=== PATIENT | female | born 2000 | race Caucasian/White ===

== ENCOUNTER 2023-04-05 15:28 | Emergency (ER) | payer OTHER, SELFPAY ==
[2023-04-05 15:29] VITALS: BP 127/88; PULSE 77; RESP 16; TEMP 36.8; O2SAT 96; BMI 30.2
--- NOTE | 2023-04-05 16:04 | ED_ITS ---
Discharge Plan Disposition Patient Disposition: Home, Self-Care Prescriptions Prescriptions: New ciprofloxacin HCl 0.3 % drops 2 drp ophthalmic (eye) Q4H 5 Days Qty: 5 0RF Rx Instructions: administer while awake Referrals Follow up/Referrals: Provider,Referral, [Primary Care Provider] - See instructions Activity Restrictions/Add. Instructions Additional Instructions/Restrictions: You have conjunctivitis of your left eye this is most likely viral because you are here with your son who also has an upper respiratory viral infection. However given the fact that this was associated with contact lens we will prescribe antibiotics to treat pseudomonal infection. Please do not put your contact lens back in until this is completely healed also may follow-up with an marine superintendent if this is not getting better within a few days. Clinical Impressions Clinical Impression: Contact lens related conjunctivitis Discharge ED Provider: Garth Ovalles General Adult HPI General Chief complaint: Eye Problems Stated complaint: left eye swelling redness pain Time Seen by Provider: 04/05/23 15:46 Mode of Arrival: Ambulatory Source of Information: Patient Limitations: No Limitations Description of Symptoms (Recalled from ER Triage Doc. by RN): pt presents to ED with c/o left eye redness, drainage. pt reports symptoms began 2 days ago. History of Present Illness HPI narrative: Patient is a 22-year-old female presents emergency department with a left hide it is red. She also is accompanied by her son who has a viral upper respiratory infection that is can been concomitant with her symptoms. However she states that she had some contact lenses that she left into long and that this was begun. She denies any foreign body sensation or any significant pain associated with this or any thick discharge no fevers chills or any other symptoms. Related Data Previous Rx's Medication Instructions Recorded ciprofloxacin HCl 0.3 % eye drops 2 drp ophthalmic (eye) Q4H 5 days 04/05/23 #5 mL Allergies Allergy/AdvReac Type Severity Reaction Status Date / Time No Known Allergies Allergy Verified 04/05/23 16:02 [facility] Disclaimer: The information contained in this section may have been updated after the patient was seen, as this information can be updated by other users. Social History Smoking Status: Current every day smoker alcohol intake: never current occupational status: other Travel in the last 8 weeks: None ROS Obtained: Yes All systems reviewed & no additional complaints except as documented Physical Exam General General appearance: alert Eye Eye exam: Present PERRL, conjunctival redness, conjunctival injection (Left eye) and other (No hyphema iritis etc.) Respiratory Respiratory exam: Present normal lung sounds bilaterally Cardiovascular Cardiovascular exam: Present regular rate Neurological Exam Neurological exam: Present alert Medical Decision Making Misael Inquiry Pt receiving controlled substance: No Vital Signs: 04/05/23 15:29 Temperature 98.3 F Temperature Source Oral Pulse Rate [Left Radial] 77 Respiratory Rate 16 Blood Pressure [Right Arm] 127/88 Blood Pressure Mean [Right Arm] 101 02 Sat by Pulse Oximetry 96 Oxygen Delivery Method Room Air Medical Decision Narrative: Patient with conjunctivitis of the left eye most likely viral given the fact that she is here with her son who has URI symptoms however with contact lens association we will treat for a possible pseudomonal infection. He has been advised to not put her contact lenses back in until she is back to normal. She was also advised to use cool compresses. She was discharged in stable condition with return precautions. Critical Care Critical Care Time Critical Care Time: No
[2023-04-05 16:11] VITALS: BP 162/94; PULSE 77; RESP 16; TEMP 36.7; O2SAT 98
== END 2023-04-05 16:11 | disposition home or self-care (01) ==
PROVIDERS: Emergency Provider Student in an Organized Health Care Education/Training Program
DX: H18.822 Corneal disorder due to contact lens, left eye (principal); H10.9 Unspecified conjunctivitis; F17.200 Nicotine dependence, unspecified, uncomplicated
CPT/HCPCS: 99283

== ENCOUNTER 2023-04-17 21:58 | Emergency (ER) | payer OTHER, SELFPAY ==
--- NOTE | 2023-04-17 21:51 | ECG_ITS ---
APPROVED REPORT Exam: Resting ECG HR:63 bpm ECG Measurements Heart Rate 63 AXES VT 146 P -32 QRSd 98 QRS 89 QT 366 T 27 QTc 374 Conclusion SINUS RHYTHM WITH SINUS ARRHYTHMIA NORMAL ECG UNCONFIRMED REPORT Electronically signed by : Herbie Titus MD 04/18/2023 14:31:42
--- NOTE | 2023-04-17 21:54 | PC.NURSE ---
CALL TO POISON CONTROL, SPOKE WITH FIDE. STATED TO OBTAIN THE USUAL THINGS AND MONITOR FOR GI UPSET AND DROWSINESS. PEAK TIME 6 HOURS. OTHER SYMPTOMS INCLUDE EXTRPYRAMIDAL SX'S, POSSIBLE TACHYCARDIA, HYPOTENSION.
--- NOTE | 2023-04-17 21:54 | HMH.EDGENADL ---
Discharge Plan Disposition Patient Disposition: [facility]fer [facility] Prescriptions Prescriptions: No Action ciprofloxacin HCl 0.3 % drops 2 drp ophthalmic (eye) Q4H 5 Days Qty: 5 0RF Rx Instructions: administer while awake Clinical Impressions Clinical Impression: Asymptomatic bacteriuria Suicide attempt by drug ingestion Qualifiers: Encounter type: initial encounter Qualified Code(s): T50.902A - Poisoning by unspecified drugs, medicaments and biological substances, intentional self-harm, initial encounter Discharge ED Provider: Jaycob Alves General Adult HPI <Isidoro Starr MD - Last Filed: 04/17/23 22:44> General Chief complaint: Overdose Stated complaint: si, took handful of vraylar Time Seen by Provider: 04/17/23 21:55 History of Present Illness HPI narrative: Patient is a 22-year-old female with 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 Patient took approximately 1 handful of Vraylar at 9 PM due to not wanting her boyfriend break-up with her in an attempt to intentionally harm herself. Patient denies coingestants. No other acute complaints at this time. Related Data Previous Rx's Medication Instructions Recorded ciprofloxacin HCl 0.3 % eye drops 2 drp ophthalmic (eye) Q4H 5 days 04/05/23 #5 mL Allergies Allergy/AdvReac Type Severity Reaction Status Date / Time No Known Allergies Allergy Verified 04/05/23 16:02 PFSH <Isidoro Starr MD - Last Filed: 04/17/23 22:44> PFS Disclaimer: The information contained in this section may have been updated after the patient was seen, as this information can be updated by other users. Social History (Updated 04/05/23 @ 16:06 by Garth Ovalles MD) Smoking Status: Current every day smoker alcohol intake: never current occupational status: other Travel in the last 8 weeks: None <Isidoro Starr MD - Last Filed: 04/17/23 22:44> ROS Obtained: Yes Systems reviewed as appropriate & no additional complaints except as documented Physical Exam <Isidoro Starr MD - Last Filed: 04/17/23 22:44> General General appearance: alert and in no apparent distress Head Head exam: atraumatic and normocephalic Eye Eye exam: Present PERRL and EOMI ENT ENT exam: Present mucous membranes moist Neck Neck exam: Present normal inspection Chest Chest inspection: Present normal inspection and symmetric chest wall rise Respiratory Respiratory exam: Present normal lung sounds bilaterally; Absent respiratory distress Cardiovascular Cardiovascular exam: Present regular rate and normal rhythm Abdominal Exam Abdominal exam: Present soft Extremities Exam Extremities exam: Present normal inspection Neurological Exam Neurological exam: Present alert Psychiatric Psychiatric exam: Present normal affect Skin Skin exam: Present warm and dry Medical Decision Making <Isidoro Starr MD - Last Filed: 04/17/23 22:44> Misael [place] Pt receiving controlled substance: No Vital Signs: 04/17/23 21:58 04/17/23 22:06 04/17/23 21:57 Temperature 98.3 F 98.3 F Temperature Source Oral Oral Pulse Rate 77 69 Pulse Rate [Left] 72 Respiratory Rate 16 18 Blood Pressure 126/87 Blood Pressure [Right Arm] 142/91 H Blood Pressure Mean [Right Arm] 108 Blood Pressure Source Automatic Cuff Blood Pressure Source [Right Arm] Automatic Cuff Blood Pressure Position Sitting Blood Pressure Position [Right Arm] Sitting 02 Sat by Pulse Oximetry 97 98 98 Oxygen Delivery Method Room Air Room Air 04/18/23 00:41 04/18/23 05:17 Temperature 98.3 F 98.3 F Temperature Source Oral Oral Pulse Rate 67 69 Pulse Rate [Left] Respiratory Rate 16 16 Blood Pressure 134/77 132/74 Blood Pressure [Right Arm] Blood Pressure Mean [Right Arm] Blood Pressure Source Automatic Cuff Blood Pressure Source [Right Arm] Blood Pressure Position Sitting Supine Blood Pressure Position [Right Arm] 02 Sat by Pulse Oximetry 98 Oxygen Delivery Method Room Air Room Air Lab Data Lab Results 04/17/23 23:10: WBC 8.9, RBC 4.90, Hgb 13.5, Hct 41.2, MCV 84.1, MCH 27.6, MCHC 32.8, RDW 12.8, Plt Count 336, MPV 7.2 L, Neut % (Auto) 71.8, Lymph % (Auto) 23.8, [place] % (Auto) 3.3, Eos % (Auto) 0.9, Baso % (Auto) 0.2, Neut # (Auto) 6.4, Lymph # (Auto) 2.1, [place] # (Auto) 0.3, Eos # (Auto) 0.1, Baso # (Auto) 0.0, Sodium 139, Potassium 3.9, Chloride 107, Carbon Dioxide 23, Anion Gap 12.9, BUN 10, Creatinine 0.70, Estimated Creat Clear 146, Estimated GFR 106, Est GFR ( Amer) 128, Glucose 97, Calcium 9.1, Total Bilirubin 0.3, AST 23, ALT 17, Alkaline Phosphatase 62, Total Protein 7.0, Albumin 4.3, Globulin 2.7, Albumin/Globulin Ratio 1.6, Serum HCG, Qual Negative, Salicylates < 1.0 L, Acetaminophen < 10 L, Plasma/Serum Alcohol < 10 04/17/23 23:55: Urine Color Yellow, Urine Appearance Cloudy, Urine pH 6.0, Ur Specific [place] >= 1.030, Urine Protein Negative, Urine Glucose (UA) Negative, Urine Ketones Trace, Urine Blood Negative, Urine Nitrate Positive, Urine Bilirubin 1+ A, Urine Urobilinogen 2.0, Ur Leukocyte Esterase Trace, Urine RBC None, Urine WBC 10-20, Ur Squamous Epith Cells Occasional, Amorphous Sediment Trace, Urine Bacteria 3+, Urine Mucus Trace, Urine HCG, Qual Negative, Urine Opiates Screen Negative, Urine Methadone Screen Negative, Ur Barbituates Screen Negative, Ur Phencyclidine Scrn Negative, Ur Amphetamines Screen Negative, U Benzodiazepines Scrn Negative, Urine Cocaine Screen Positive H, U Marijuana (THC) Screen Positive H 04/17/23 23:10 04/17/23 23:10 Orders (Tests/Meds): ORDERS Category Date Time Status Acetaminophen Stat Lab 04/17/23 23:10 Completed Blood alcohol [Ethyl Alcohol] Stat Lab 04/17/23 23:10 Completed CBC w/Auto Diff [Complete Blood Count Auto Diff] Stat Lab 04/17/23 23:10 Completed CMP [Comprehensive Metabolic Panel] Stat Lab 04/17/23 23:10 Completed Drug Screen,Urine Stat Lab 04/17/23 23:55 Completed HCG Qualitative, Serum Stat Lab 04/17/23 23:10 Completed Salicylate Stat Lab 04/17/23 23:10 Completed Urinalysis and Microscopic Stat Lab 04/17/23 23:55 Completed Urine , HCG Qual. Stat Lab 04/17/23 23:55 Completed Urine Culture Stat Micro 04/17/23 23:55 Received ECG initial [place] Routine Y 04/17/23 21:51 Completed EKG Request [ECG Request] Stat Y 04/17/23 21:51 Ordered ECG Data Tracing #1: Independently interpreted by me, rate is 63, rhythm is regular, axis is borderline rightward deviated, no ST elevation in anatomical contiguous leads, QTc 374. Medical Decision Narrative: In summary patient is a 22-year-old female past medical history described above who presents emergency department for evaluation of an intentional ingestion. Patient is hemodynamically stable and nontoxic-appearing upon arrival, afebrile. Case was discussed with poison control, most common side effects are sedation, nausea, vomiting. Patient will require a 6-hour observation. Workup will also be conducted with hematologic labs, urinalysis. Initial EKG shows no prolonged QT. Hematologic labs, observational period with medical clearance and subsequent behavioral health evaluation pending at time of transfer of care to the oncoming physician, Dr. Alves. <Jaycob Alves MD - Last Filed: 04/18/23 05:23> Vital Signs: 04/17/23 21:58 04/17/23 22:06 04/17/23 21:57 Temperature 98.3 F 98.3 F Temperature Source Oral Oral Pulse Rate 77 69 Pulse Rate [Left] 72 Respiratory Rate 16 18 Blood Pressure 126/87 Blood Pressure [Right Arm] 142/91 H Blood Pressure Mean [Right Arm] 108 Blood Pressure Source Automatic Cuff Blood Pressure Source [Right Arm] Automatic Cuff Blood Pressure Position Sitting Blood Pressure Position [Right Arm] Sitting 02 Sat by Pulse Oximetry 97 98 98 Oxygen Delivery Method Room Air Room Air 04/18/23 00:41 04/18/23 05:17 Temperature 98.3 F 98.3 F Temperature Source Oral Oral Pulse Rate 67 69 Pulse Rate [Left] Respiratory Rate 16 16 Blood Pressure 134/77 132/74 Blood Pressure [Right Arm] Blood Pressure Mean [Right Arm] Blood Pressure Source Automatic Cuff Blood Pressure Source [Right Arm] Blood Pressure Position Sitting Supine Blood Pressure Position [Right Arm] 02 Sat by Pulse Oximetry 98 Oxygen Delivery Method Room Air Room Air Lab Data Lab Results 04/17/23 23:10: WBC 8.9, RBC 4.90, Hgb 13.5, Hct 41.2, MCV 84.1, MCH 27.6, MCHC 32.8, RDW 12.8, Plt Count 336, MPV 7.2 L, Neut % (Auto) 71.8, Lymph % (Auto) 23.8, [place] % (Auto) 3.3, Eos % (Auto) 0.9, Baso % (Auto) 0.2, Neut # (Auto) 6.4, Lymph # (Auto) 2.1, [place] # (Auto) 0.3, Eos # (Auto) 0.1, Baso # (Auto) 0.0, Sodium 139, Potassium 3.9, Chloride 107, Carbon Dioxide 23, Anion Gap 12.9, BUN 10, Creatinine 0.70, Estimated Creat Clear 146, Estimated GFR 106, Est GFR ( Amer) 128, Glucose 97, Calcium 9.1, Total Bilirubin 0.3, AST 23, ALT 17, Alkaline Phosphatase 62, Total Protein 7.0, Albumin 4.3, Globulin 2.7, Albumin/Globulin Ratio 1.6, Serum HCG, Qual Negative, Salicylates < 1.0 L, Acetaminophen < 10 L, Plasma/Serum Alcohol < 10 04/17/23 23:55: Urine Color Yellow, Urine Appearance Cloudy, Urine pH 6.0, Ur Specific [place] >= 1.030, Urine Protein Negative, Urine Glucose (UA) Negative, Urine Ketones Trace, Urine Blood Negative, Urine Nitrate Positive, Urine Bilirubin 1+ A, Urine Urobilinogen 2.0, Ur Leukocyte Esterase Trace, Urine RBC None, Urine WBC 10-20, Ur Squamous Epith Cells Occasional, Amorphous Sediment Trace, Urine Bacteria 3+, Urine Mucus Trace, Urine HCG, Qual Negative, Urine Opiates Screen Negative, Urine Methadone Screen Negative, Ur Barbituates Screen Negative, Ur Phencyclidine Scrn Negative, Ur Amphetamines Screen Negative, U Benzodiazepines Scrn Negative, Urine Cocaine Screen Positive H, U Marijuana (THC) Screen Positive H Orders (Tests/Meds): ORDERS Category Date Time Status Acetaminophen Stat Lab 04/17/23 23:10 Completed Blood alcohol [Ethyl Alcohol] Stat Lab 04/17/23 23:10 Completed CBC w/Auto Diff [Complete Blood Count Auto Diff] Stat Lab 04/17/23 23:10 Completed CMP [Comprehensive Metabolic Panel] Stat Lab 04/17/23 23:10 Completed Drug Screen,Urine Stat Lab 04/17/23 23:55 Completed HCG Qualitative, Serum Stat Lab 04/17/23 23:10 Completed Salicylate Stat Lab 04/17/23 23:10 Completed Urinalysis and Microscopic Stat Lab 04/17/23 23:55 Completed Urine , HCG Qual. Stat Lab 04/17/23 23:55 Completed Urine Culture Stat Micro 04/17/23 23:55 Received ECG initial [place] Routine Y 04/17/23 21:51 Completed EKG Request [ECG Request] Stat Y 04/17/23 21:51 Ordered Medical Decision Narrative: In summary patient is a 22-year-old female past medical history described above who presents emergency department for evaluation of an intentional ingestion. Patient is hemodynamically stable and nontoxic-appearing upon arrival, afebrile. Case was discussed with poison control, most common side effects are sedation, nausea, vomiting. Patient will require a 6-hour observation. Workup will also be conducted with hematologic labs, urinalysis. Initial EKG shows no prolonged QT. Hematologic labs, observational period with medical clearance and subsequent behavioral health evaluation pending at time of transfer of care to the oncoming physician, Dr. Alves. Joselyn CRUZ: I assumed care of the patient at the time of handoff from the prior provider. On reassessment patient remains drowsy but hemodynamically stable. She reports to me that she her suicide attempt was merely her trying to manipulate her significant other and family in order to get what she wants. She reports that she is not suicidal. Laboratory results interpreted by me and significant for no significant electrolyte derangement, negative test, negative salicylate, alcohol, Tylenol levels. UDS shows positive cocaine and marijuana. Urinalysis shows signs of possible infection, however, patient has absolutely no urinary symptoms when questioned and so does not need treatment. At 11:50 PM patient was placed in observation status for hemodynamic monitoring, psychiatric monitoring, and metabolization of overdose. Patient was initially assessed by ella Agustin. After patient's initial assessment, at approximately 3 AM, we received a phone call from the patient's mother. We were previously unable to contact the patient's mother because we did not have a phone number available and the patient reported that the mom did not have a number that we could contact her at. Mother reports that she is very concerned about the patient's acute mental state and suicidal intentions. She reports that patient has been voluntarily and involuntarily admitted in the past. She reports that she thinks this time is different. She is concerned about the patient's heart and drug use and thinks that is contributing to her mental condition currently. I also spoke with Geronimo Sorenson, the patient's now former significant other. He reports that she has been mentally unstable for quite some time, but much more seriously this week. He reports that she has been sending him text messages saying that she is going to kill herself as soon as she leaves. The last test message that was sent of that nature was approximately 10 to 11 PM, before the patient had metabolized and has been evaluated by psychiatry. He also reports that the patient stole a Ruger pistol from him and he believes it is currently in the possession of one of her friends and that she would have access to it. I encouraged him to call the police regarding the matter of the gun. With this additional collateral information, the dynamics of the situation have changed. I contacted Navid at [facility] and had a discussion with him regarding the collateral information we received. He had additional discussions with the parties involved and ultimately decided that the patient requires a continued hold and that she will be transferred in police custody to [facility] for further assessment. The patient was transferred in police custody. The patient's observation was discontinued at time of transfer to [facility], 5:17 AM. Total time in observation 5 hours and 27 minutes. I had a [id number] visit with the patient with provided discharge instructions. The total time involved in discharging the patient was less than 30 minutes. Critical Care <Isidoro Starr MD - Last Filed: 04/17/23 22:44> Critical Care Time Critical Care Time: No
[2023-04-17 21:57] VITALS: PULSE 69; O2SAT 98
[2023-04-17 21:58] VITALS: BP 142/91; PULSE 72; RESP 16; TEMP 36.8; O2SAT 97; BMI 28.3
--- NOTE | 2023-04-17 22:00 | PC.NURSE ---
PATIENT PLACED ON -ON-
[2023-04-17 22:05] VITALS: BMI 28.3
[2023-04-17 22:06] VITALS: BP 126/87; PULSE 77; RESP 18; TEMP 36.8; O2SAT 98
--- NOTE | 2023-04-17 22:13 | PC.NURSE ---
patient made call to mother and an unidentified male, phone taken from patient and placed out of reach. patient placed in paper gown and room cleared of objects that patient could possibly use to hurt herself. EKG obtained
--- NOTE | 2023-04-17 22:21 | PC.NURSE ---
md sent in room to discuss POC with patient.
--- NOTE | 2023-04-17 22:25 | PC.NURSE ---
lab was contacted to obtain blood from patient.
--- NOTE | 2023-04-17 22:28 | PC.NURSE ---
Judge Steel notified that was emailed to him
--- NOTE | 2023-04-17 22:30 | PC.NURSE ---
Pt states she took pills in intent to harm herself. She admits to drinking 4 [place] during the day , using cocaine and marijuana
--- NOTE | 2023-04-17 22:58 | PC.NURSE ---
Lab contacted over blood draw for this patient.
[2023-04-17 23:17] LABS: Basophils % 0.2 % (0.1-2.0); Eosinophils # 0.1 K/mm3 (0.0-0.4); Eosinophils % 0.9 % (0.1-12.0); Hematocrit 41.2 % (37.0-47.0); Hemoglobin 13.5 g/dL (12.2-16.2); Lymphocytes # 2.1 K/mm3 (0.7-4.5); Lymphocytes % 23.8 % (10-50); Mean Corpuscular HGB Conc 32.8 g/dL (31.8-35.4); Mean Corpuscular Hemoglobin 27.6 pg (27.0-31.2); Mean Corpuscular Volume 84.1 fl (81-99); Mean Platelet Volume 7.2 fl (7.4-10.4); Monocytes # 0.3 K/mm3 (0.1-1.0); Monocytes % 3.3 % (1.7-9.3); Neutrophils # 6.4 K/mm3 (1.8-7.8); Neutrophils % 71.8 % (37.0-80.0); Platelet Count 336 K/mm3 (142-424); Red Cell Distribution Width 12.8 % (11.5-17.5); White Blood Count 8.9 K/mm3 (4.8-10.8)
[2023-04-17 23:23] LABS: Chloride 107 mmol/L (98-107)
[2023-04-17 23:24] LABS: HCG Qualitative, Serum Negative (Negative); Potassium 3.9 mmoL/L (3.5-5.1); Sodium 139 mmol/L (136-145)
[2023-04-17 23:26] LABS: Alanine Aminotransferase 17 U/L (12-78); Aspartate Amino Transferase 23 U/L (14-36); Blood Urea Nitrogen 10 mg/dl (7-17); Creatinine Clearance Estimated 146 mL/min (50-200); Estimated Glomerular Filt Rate 106 ml/min (>60); GFR (African American) 128 ML/MIN (>60)
[2023-04-17 23:27] LABS: Albumin Level 4.3 g/dl (3.5-5.0); Albumin/Globulin Ratio 1.6 (1.1-1.8); Alkaline Phosphatase 62 U/L (38-126); Anion Gap 12.9 mEq/L (5-15); Bilirubin,Total 0.3 mg/dl (0.2-1.3); Calcium 9.1 mg/dl (8.4-10.2); Carbon Dioxide 23 mmol/L (22.0-30.0); Globulin 2.7 g/dL (1.3-3.2); Glucose 97 mg/dl (74-100)
[2023-04-17 23:31] LABS: Acetaminophen < 10 ug/ml (10-30); Ethyl Alcohol < 10 mg/dl (0-10); Salicylate < 1.0 mg/dL (2.0-20.0)
--- NOTE | 2023-04-17 23:54 | PC.NURSE ---
urine sample obtained and sent to lab
[2023-04-17 23:58] LABS: Microscopic, Urine URINE MICROSCOPIC (MICROSCOPIC)
[2023-04-18] LABS: Urine Pregnancy, HCG Qual. Negative (Negative)
--- NOTE | 2023-04-18 00:13 | PC.NURSE ---
spoke with ambrose at poison control. reviewed labs, vitals, status. She will call back in a few hours.
[2023-04-18 00:23] LABS: Amphetamine/Metha Screen,Urine Negative ng/ml (<1000); Benzodiazepines Screen,Urine Negative ng/ml (<200)
[2023-04-18 00:24] LABS: Barbiturates Screen,Urine Negative ng/ml (<200)
[2023-04-18 00:25] LABS: Cannabinoid Screen,Urine Positive ng/ml (<50); Methadone Screen,Urine Negative ng/ml (<300)
[2023-04-18 00:26] LABS: Cocaine Screen,Urine Positive ng/ml (<300)
[2023-04-18 00:27] LABS: Appearance,Urine CLOUDY (Clear); Blood, Urine Negative (Negative); Color,Urine YELLOW (Yellow); Glucose,Urine (UA) Negative (Negative); Ketones,Urine TRACE (Negative); Leukocyte Esterase,Urine TRACE (Negative); Nitrate,Urine POSITIVE (Negative); Opiate Screen,Urine Negative ng/ml (<300); Phencyclidine Screen,Urine Negative ng/ml (<25); Protein,Urine Negative (Negative); Specific Gravity, Urine >= 1.030 (1.005-1.030)
--- NOTE | 2023-04-18 00:27 | PC.NURSE ---
Dr. Alves present in the room at this time explaining to the patient as to why she is unable to leave the facility AMA
[2023-04-18 00:28] LABS: Amorphous Sediment,Urine Trace /lpf; Bacteria,Urine 3+ /lpf; Bilirubin,Urine 1+ (Negative); Mucus,Urine Trace /lpf; Squamous Epithelial Cell,Urine Occasional #/hpf (0-5)
[2023-04-18 00:41] VITALS: BP 134/77; PULSE 67; RESP 16; TEMP 36.8; O2SAT 98
--- NOTE | 2023-04-18 01:02 | PC.NURSE ---
faxed information to [facility] for initial telehealth assessment. confirmed per [phone]. she states they will call us back in about 15-20 mins
--- NOTE | 2023-04-18 01:49 | PC.NURSE ---
called ella teague and received return call from Navid. Navid is currently talking to LINDA Kim
--- NOTE | 2023-04-18 01:56 | PC.NURSE ---
Pt on zoom with Navid Christine
--- NOTE | 2023-04-18 02:11 | PC.NURSE ---
Roger from [facility] informing ot she does not meet criteria for inpatient services, he will be faxing over a plan of care for her.
--- NOTE | 2023-04-18 02:15 | PC.NURSE ---
Spoke with Jeff from poison control she is going to close the case on this pt since we are so close to 6hr window, without any new symptoms. If anything changes we are to call her back.
--- NOTE | 2023-04-18 02:50 | PC.NURSE ---
received safety plan. waiting on mom to arrive. informed.
--- NOTE | 2023-04-18 03:09 | PC.NURSE ---
Pt mother called ER with concerns of pt harming herself once she leaves. Pt currently denies any HI/SI, denied it on her zoom with [place]. Pt is texting her boyfriend stating she will kill herself if he doesn't take her back. Dr Alves aware, will re-evaluate once we speak with boyfriend.
--- NOTE | 2023-04-18 03:44 | PC.NURSE ---
Dr Alves spoke with the mother (Isabel) and Boyfriend (Geronimo). Roger العلي at [facility] contacted, spoke with Dr Alves. Roger is going to contact them both and call us back.
--- NOTE | 2023-04-18 04:05 | PC.NURSE ---
Dr Alves spoke with Roger after he spoke with family. Pt is being admitted to [facility] on an involuntary hold. Awaiting Roger to send order to dispatch. Officer Cherelle here to transport pt when released.
--- NOTE | 2023-04-18 04:07 | PC.NURSE ---
Dr. Alves in room speaking to patient
--- NOTE | 2023-04-18 04:12 | PC.NURSE ---
contacted [facility] dispatch re: if they had received an order to transport. stated not at this time.
--- NOTE | 2023-04-18 04:15 | PC.NURSE ---
contacted licha via primary nurse for status on transport order. was told he was notarizing and sending it currently
--- NOTE | 2023-04-18 04:47 | PC.NURSE ---
Judge Steel was contacted and advised to check his email for transport order and the return email was provided on a fax sheet. Judge Steel stated he would sign and return it.
[2023-04-18 05:17] VITALS: BP 132/74; PULSE 69; RESP 16; TEMP 36.8; O2SAT 99
--- NOTE | 2023-04-18 05:19 | PC.NURSE ---
Officer Cherelle to transport pt to [facility], copy of chart sent with Officer
--- NOTE | 2023-04-22 15:06 | PC.NURSE ---
urine culture results discussed with , per chart pt had no urinary symptoms and was transferred to an inpatient hospital. NTD at this time.
== END 2023-04-18 05:20 ==
PROVIDERS: Emergency Medicine; Emergency Provider Emergency Medicine
DX: T43.592A Poisoning by other antipsychotics and neuroleptics, intentional self-harm, initial encounter (principal); R45.851 Suicidal ideations; F17.200 Nicotine dependence, unspecified, uncomplicated
CPT/HCPCS: 36415; 80053; 80307; 80329; 81001; 81025; 84703; 85025; 87086; 93005; 99285